=== PATIENT | female | born 1980 | race Caucasian/White ===

== ENCOUNTER → 2018-02-06 | Outpatient (CLI) | payer BC ==
[2018-02-06 17:15] LABS: FERRITIN 126 NG/ML (8-252)
== END ==
LOC: M WUC 11:25
DX: D50.9 Iron deficiency anemia, unspecified (principal)
CPT/HCPCS: 82728

== ENCOUNTER → 2020-08-01 | Outpatient (CLI) | payer BC | LOC: M LABSMTC 11:56 | PROVIDERS: ATTEND Family Medicine | DX: Z20.828 Contact with and (suspected) exposure to other viral communicable diseases (principal) | CPT/HCPCS: C9803; U0003 ==

== ENCOUNTER → 2021-02-24 | Outpatient (REF) | payer BC ==
[2021-02-25 13:14] LABS: PERCENT SATURATION 4.8 % (13.2-45.0)
== END ==
LOC: M LAB REF 12:37
PROVIDERS: ATTEND Internal Medicine
DX: D64.9 Anemia, unspecified (principal)

== ENCOUNTER → 2021-03-02 | Outpatient (REF) | payer BC ==
[2021-03-02 17:30] LABS: FOLATE 9.9 NG/ML; VITAMIN B12 LEVEL > 2000 PG/ML
== END ==
LOC: M LAB REF 16:25
PROVIDERS: ATTEND Internal Medicine
DX: D50.9 Iron deficiency anemia, unspecified (principal)

== ENCOUNTER 2021-03-16 13:26 | Outpatient (CLI) | payer BC ==
[~2021-03-16] VITALS: Ht 162.6 cm; Wt 65.9 kg
[2021-03-16] MEDS ORDERED: FERRIC CARBOXYMALTOSE INJ 750 MG, VIAL MATE ADAPTER 1 EACH in NS 250 ML IV ONE (13:30)
[2021-03-16] MEDS ORDERED: diphenhydrAMINE 25MG CAP PO ONE (13:30)
[2021-03-16] MEDS ORDERED: ACETAMINOPHEN 500 MG TAB PO ONE (13:30)
[2021-03-16 13:40] VITALS: BP 119/71
[2021-03-16 15:04] VITALS: BP 131/81
== END 2021-03-16 15:05 | disposition home or self-care (01) ==
LOC: M INFU 13:26
PROVIDERS: ATTEND Internal Medicine
DX: D50.9 Iron deficiency anemia, unspecified (principal)
CPT/HCPCS: 96365; J1439

== ENCOUNTER → 2021-04-14 | Outpatient (REF) | payer BC | LOC: M LAB REF 16:30 | PROVIDERS: ATTEND Internal Medicine | DX: Z98.84 Bariatric surgery status (principal) ==

== ENCOUNTER → 2021-06-04 | Outpatient (REF) | payer BC | LOC: M LAB REF 11:59 | PROVIDERS: ATTEND Internal Medicine Gastroenterology | DX: D50.9 Iron deficiency anemia, unspecified (principal) ==

== ENCOUNTER → 2021-09-02 | Outpatient (CLI) | payer BC ==
[~2021-09-02] MED LIST: FERR32TA PO; PROP10TA56 PO; PURE500C5 PO; ZOLO100T PO
== END ==
LOC: M LABSMTC 09:54
PROVIDERS: ATTEND Anesthesiology
DX: Z01.812 Encounter for preprocedural laboratory examination (principal); Z20.822 Contact with and (suspected) exposure to COVID-19

== ENCOUNTER 2021-09-07 12:13 | Day surgery (SDC) | payer BC ==
[~2021-09-07] VITALS: Ht 165.1 cm; Wt 68.5 kg
[~2021-09-07 12:13] MED LIST changes: +NS 1,000 ML IV ONE
[2021-09-07] MEDS ORDERED: LIDOCAINE 2% 100MG/5ML SDV (FOR ANES.) As Ordered ONE (12:51)
[2021-09-07] MEDS ORDERED: propofoL 500 MG/50 ML VIAL As Ordered ONE (12:51)
[2021-09-07] MEDS ORDERED: fentaNYL 100 MCG/2 ML INJECTION As Ordered ONE (12:53)
[2021-09-07] MEDS ORDERED: propofoL 200 MG/20 ML VIAL As Ordered ONE (14:29)
[2021-09-07 15:07] VITALS: BP 116/71
== END 2021-09-07 15:13 | disposition home or self-care (01) ==
LOC: M OPP 12:13
PROVIDERS: ATTEND Internal Medicine Gastroenterology
DX: D50.9 Iron deficiency anemia, unspecified (principal); K57.30 Diverticulosis of large intestine without perforation or abscess without bleeding; K64.8 Other hemorrhoids; Z98.0 Intestinal bypass and anastomosis status; Z79.899 Other long term (current) drug therapy
CPT/HCPCS: 43235; 45378; J3010

== ENCOUNTER → 2022-01-20 | Outpatient (REF) ==
[~2022-01-20] MED LIST changes: -NS 1,000 ML IV ONE
== END ==
LOC: M LABSMTC 09:09
PROVIDERS: ATTEND Family Medicine
DX: Z11.52 Encounter for screening for COVID-19 (principal)

== ENCOUNTER → 2022-10-25 | Outpatient (REF) | payer BC ==
[~2022-10-25] MED LIST changes: +ASCO500C3 PO; -PURE500C5 PO
[2022-10-26 13:08] LABS: HEPATITIS B SURFACE ANTIGEN NEGATIVE (NEGATIVE)
[2022-10-26 13:29] LABS: HEPATITIS B CORE ANTIBODY IGM NEGATIVE (NEGATIVE)
== END ==
LOC: M LAB REF 12:12
PROVIDERS: ATTEND Internal Medicine
DX: R74.01 Elevation of levels of liver transaminase levels (principal)

== ENCOUNTER → 2022-11-29 | Outpatient (CLI) | payer BC | LOC: M WHC 08:11 | PROVIDERS: ATTEND Internal Medicine | DX: R94.5 Abnormal results of liver function studies (principal) ==

== ENCOUNTER → 2022-12-27 | Outpatient (REF) | LOC: M LABSMTC 09:55 | PROVIDERS: ATTEND Family Medicine | DX: Z11.52 Encounter for screening for COVID-19 (principal) ==

== ENCOUNTER → 2023-02-03 | Outpatient (REF) | payer BC ==
[2023-02-03 17:33] LABS: FERRITIN 62.5 NG/ML (7.3-270.7)
[2023-02-03 17:35] LABS: TOTAL 25(OH) VITAMIN D 62.1 NG/ML (20.0-100.0)
[2023-02-03 17:48] LABS: FOLATE 13.5 NG/ML (>5.4)
== END ==
LOC: M LAB REF 16:22
PROVIDERS: ATTEND Internal Medicine
DX: D50.9 Iron deficiency anemia, unspecified (principal); Z98.84 Bariatric surgery status

== ENCOUNTER → 2023-06-09 | Outpatient (REF) | payer BC | LOC: M LAB REF 16:12 | PROVIDERS: ATTEND Internal Medicine | DX: D50.9 Iron deficiency anemia, unspecified (principal) ==

== ENCOUNTER → 2024-03-23 | Outpatient (REF) | payer BC ==
[2024-03-23 18:25] LABS: PERCENT SATURATION 15.3 % (13.2-45.0); PHOSPHORUS LEVEL 4.1 MG/DL (2.5-4.9)
[2024-03-23 18:28] LABS: FOLATE 12.8 NG/ML (>5.4); TOTAL 25(OH) VITAMIN D 36.3 NG/ML (20.0-100.0)
== END ==
LOC: M LAB REF 16:13
PROVIDERS: ATTEND Nurse Practitioner Family
DX: Z98.84 Bariatric surgery status (principal)

== ENCOUNTER → 2024-07-31 | Outpatient (REF) | LOC: M EMP 08:36 | PROVIDERS: ATTEND Family Medicine | DX: Z20.822 Contact with and (suspected) exposure to COVID-19 (principal) ==

== ENCOUNTER → 2025-04-12 | Outpatient (RCR) | LOC: M EMPSSV 02-25 02:28 | PROVIDERS: ATTEND Family Medicine | DX: Z11.52 Encounter for screening for COVID-19 (principal) ==